=== PATIENT | female | born 1990 | race Caucasian/White ===

== ENCOUNTER 2016-10-13 19:17 | Emergency (ER) | payer BC ==
[~2016-10-13] VITALS: Ht 152.4 cm; Wt 104.3 kg
[2016-10-13 19:45] VITALS: BP 158/92
[2016-10-13 20:32] LABS: Urine Bilirubin Negative (Negative); Urine Color Yellow (Yellow); Urine Glucose Normal (Normal); Urine Ketone Negative (Negative); Urine Mucus FEW (None Seen); Urine Nitrite Negative (Negative); Urine RBC 5 /hpf (0 - 4); Urine Squamous Epithelial Cell FEW /hpf (<5)
[2016-10-13 21:10] LABS: Urine Blood 2+ /uL (Negative)
== END 2016-10-13 21:26 | disposition home or self-care (01) ==
LOC: ER 19:25
DX: N39.0 Urinary tract infection, site not specified (principal)
CPT/HCPCS: 81001; 81025